=== PATIENT | female | born 1995 | race Caucasian/White ===

== ENCOUNTER 2018-10-01 18:18 | Inpatient (IN) | payer BC ==
[~2018-10-01] VITALS: Ht 170.2 cm; Wt 68.9 kg
--- NOTE | ~2018-10-01 | PATH ---
[facility] [address] [place] [address] PATHOLOGY RPT PROCEDURE Name: AMELIA VARGAS Room #: 450-P DIS IN M.R.#: [id number] Admission: 10/01/18 Date of : [birth year] Discharge: 10/05/18 Report #: [id number] Path Case #: [id number] [facility] Accession Number: [id number] . 01 Material submitted: . GALLBLADDER . 01 Clinical history: . Biliary dyskinesia, chronic cholecystitis. . 02 Diagnosis: Gallbladder, cholecystectomy: - Mild chronic cholecystitis. . (IUV:mml; 10/06/18) [facility]/10/06/2018 . 02 Electronically signed: . Tammie Sarmiento MD, Pathologist NPI- [id number] . 01 Gross description: . Received in formalin labeled "Amelia Vargas, gallbladder" is a previously opened cholecystectomy specimen measuring 6.5 x 2.2 x 0.8 cm. The serosa is swanson-green and smooth and the mucosa is swanson-green and velvety with scant yellow stippling. No polyps or masses are identified and the wall thickness measures 0.2 cm. Calculi are not identified within the gallbladder or within the container. Healthcare Economics Manager sections of the fundus and body and the cystic duct margin are submitted in cassette A1. ([facility]; 10/03/2018) SYC/SYC . 02 Pathologist provided ICD-10: K81.1 . 02 CPT . 337823 Specimen Comment: A courtesy copy of this report has been sent to Specimen Comment: [phone], . Specimen Comment: Report sent to / DR PALMER Performed at: 01 [facility] [address] [id number] MD Jaquan Ramos MD Phone: [phone] Performed at: [address] [id number] [address] [address] PATHOLOGY RPT PROCEDURE Name: AMELIA VARGAS Room #: 450-P [facility] IN M.R.#: [id number] Admission: 10/01/18 Date of : [birth year] Discharge: 10/05/18 Report #: [id number] Path Case #: [id number] MD Tammie Sarmiento MD Phone: [phone]
--- NOTE | ~2018-10-01 | EKG ---
[address] [address] ELECTROCARDIOGRAM REPORT Name: AMELIA VARGAS Room #: 450-P ADM IN M.R.#: [id number] Admission: 10/01/18 Attend Phys: Raul Alvarado Discharge: Date of : [birth year] Report #: [id number] THIS REPORT FOR: //name// [facility] ED Test Date: 2018-10-01 Test Time: 18:41:02 Pat Name: AMELIA VARGAS Department: Room: 450 Gender: F Full Stack Python Developer: LORNA : 1995 Requested By: Carmelita Parikh Order Number: [id number] MD: Gary Lutz Measurements Intervals [place] Rate: 77 P: 77 WV: 162 QRS: 38 QRSD: 78 T: 45 QT: 374 QTc: 424 Interpretive Statements Sinus rhythm Normal tracing No previous ECG available for comparison Electronically Signed On 10-02-2018 8:00:11 TELETYPE TECHNICIAN by Gary Lutz [email or web address] <ELECTRONICALLY SIGNED> By: Gary Lutz MD, [facility] 10/02/18 0800 1841 1841 Gary Lutz MD, FACC /EPI
--- NOTE | ~2018-10-01 | O ---
[facility] [address] OPERATIVE REPORT Name: AMELIA VARGAS Room #: 450-P ADM IN M.R.#: [id number] Admission: 10/01/18 Attend Phys: Raul Alvarado Discharge: Date of : [birth year] Report #: [id number] THIS REPORT FOR: //name// CC: DR ESTELA JOHNSON DATE OF SERVICE: 10/03/2018 SURGEON: Lan Soni MD BARBACK: TERA Pink. PREOPERATIVE DIAGNOSES: 1. Biliary colic with dyskinesia (gallbladder ejection fraction 7%). 2. Odynophagia secondary to esophageal ulcer. 3. Gastroesophageal reflux disease. POSTOPERATIVE DIAGNOSES: 1. Biliary colic with dyskinesia and chronic cholesterolosis. 2. Biliary colic with dyskinesia (gallbladder ejection fraction 7%). 3. Odynophagia secondary to esophageal ulcer. 4. Gastroesophageal reflux disease. PROCEDURE: Laparoscopic cholecystectomy. ANESTHESIA: General endotracheal anesthesia and local anesthetic. ESTIMATED BLOOD LOSS: 5 mL. SPECIMEN: Gallbladder. COMPLICATIONS: None appreciated. INDICATIONS FOR PROCEDURE: This is a 23-year-old female patient who presented to [facility] with epigastric/substernal chest pain associated with nausea and difficult, painful swallowing. The patient has had minimal right upper quadrant abdominal pain; however, she does report lower substernal chest pain favoring the right side postprandially. She has had initial pain with swallowing as well. Ultrasound revealed sludge with no evidence for acute inflammatory change. A PIPIDA scan revealed 7% ejection fraction, consistent with biliary dyskinesia. In addition to this, the patient had reproduction of her symptoms with intake of Ensure. Gastroenterology was consulted for suspicion of an esophageal issue as well as biliary dyskinesia. EGD revealed an ulcer in the esophagus, likely secondary to a pill or capsule. Despite this, [facility] [address] [place] [address] OPERATIVE REPORT Name: AMELIA VARGAS Room #: 450-P ADM IN M.R.#: [id number] Admission: 10/01/18 Attend Phys: Raul Alvarado Discharge: Date of : [birth year] Report #: [id number] due to the patient's other symptomatology and study results, cholecystectomy is indicated. OPERATIVE FINDINGS: Upon entrance into the abdominal cavity, the liver, stomach, small bowel and colon in the surrounding area appeared otherwise normal. The gallbladder itself was slightly distended with no acute inflammatory change. No chronic inflammatory changes were seen. The critical view consisting of cystic artery, cystic duct and lower edge of the gallbladder forming a window, through which the liver was visible, was seen prior to clipping the cystic duct for an attempted cholangiogram. The patient's cystic duct was extremely small. It did not allow for placement of the catheter for cholangiogram. After division of the cystic duct, 3 clips remained on the cystic duct stump. Upon opening the gallbladder on the back table, cholesterolosis was seen within the gallbladder. No stones were identified. At the conclusion of the operation, the sponge, needle and instrument counts were correct. DESCRIPTION OF PROCEDURE IN DETAIL: After the risks, benefits and expectations of the operation were discussed in detail with the patient, informed consent was obtained. The patient was identified in the preoperative holding area. She was given IV antibiotics as documented in the chart in line with SCIP metrics. The patient was then taken to the operating room, and she was placed in the supine position. SCDs were placed on the patient's bilateral lower extremities and pneumatic compression was initiated. The patient was then given IV sedation, and she was intubated without incident. A time-out was performed to identify the correct patient and procedure after prepping and draping the patient in the standard sterile fashion. Local anesthetic was infiltrated into the skin and subcutaneous tissue supraumbilically where a small vertical midline incision was made. An 11 mm Visiport was placed intraperitoneally with a 0-degree angled laparoscope. Pneumoperitoneum was then achieved with insufflation of carbon dioxide to 15 mmHg. A 30-degree angled laparoscope was inserted. The patient was placed in the reverse Trendelenburg position, rotated to her left. A subxiphoid 5 mm and right subcostal 5 mm ports x 2 were placed under direct visualization after local anesthetic was infiltrated into the skin and subcutaneous tissue and appropriately sized incisions were made. Operative findings are as noted above. The dome of the gallbladder was retracted in a cephalad direction. The gallbladder peritoneum was scored medially and laterally with the ultrasonic dissector. Dissection was carried out to identify the cystic artery and cystic duct as well as the critical view as described above. The artery and duct were the only two structures entering the gallbladder. The cystic duct was then clipped at its junction with the neck of the gallbladder. A ductotomy was created, and I attempted to pass the Taut catheter into the ductotomy; however, this was unsuccessful after several attempts due to the small caliber of the duct. The cholangiogram was aborted. The cystic duct was then triply clipped [address] [address] OPERATIVE REPORT Name: AMELIA VARGAS Room #: 450-P ADM IN M.R.#: [id number] Admission: 10/01/18 Attend Phys: Raul Alvarado Discharge: Date of : [birth year] Report #: [id number] and divided with the ultrasound dissector leaving 3 clips on the cystic duct stump. The cystic artery was divided with the ultrasound dissector with good hemostasis. The gallbladder was then dissected out of the liver bed without entrance into the gallbladder or liver bed. The gallbladder was placed in an Endopouch and removed through the supraumbilical port site. The abdominal cavity was then reentered. The liver bed was hemostatic, and the Hemoclips were secure. The remainder of the abdominal cavity was briefly surveyed and no other significant pathology was seen other than some mild scar tissue in the pelvis. The port site fascial opening was then closed with an 0 PDS suture using the Remigio-Claudine laparoscopic fascial closure device. The suture was tied under direct visualization to ensure no incorporation of intra-abdominal content. The abdominal cavity was then desufflated and the ports were removed. Interrupted subcuticular 4-0 Monocryl sutures and Dermabond were used to close the skin incisions. The patient tolerated the procedure well. She was awakened, extubated and taken to recovery room in stable condition with no apparent intraoperative complications. <ELECTRONICALLY SIGNED> By: Lan Soni MD, FACS 10/04/18 1043 1139 1224 Lan Soni MD, FACS /nt
--- NOTE | ~2018-10-01 | P ---
[facility] [place] [address] PROCEDURE REPORT Name: AMELIA VARGAS Room #: 450-P ADM IN M.R.#: [id number] Admission: 10/01/18 Attend Phys: Raul Alvarado Discharge: Date of : [birth year] Report #: [id number] THIS REPORT FOR: //name// CC: Christiano Holland PROCEDURE: Inpatient upper endoscopy. BRIEF HISTORY: The patient is a 23-year-old woman with odynophagia. She is known to use ibuprofen and doxycycline. She also has a gallbladder ejection fraction of 7%. PREOPERATIVE DIAGNOSIS: Odynophagia. POSTOPERATIVE DIAGNOSES: 1. Ulcerations mid esophagus consistent with "pill ulcer." 2. Mild erythematous gastritis without evidence of ulcers or erosions. MEDICATIONS: Deep sedation with propofol per Anesthesia. SPECIMEN: Biopsies of gastric mucosa. ESTIMATED BLOOD LOSS: 3 mL. PROCEDURE: EGD with biopsy. FINDINGS: Prior to propofol sedation, procedure of upper endoscopy discussed with the patient as well as potential risks and its complications. She indicates she understands and desires to proceed. DESCRIPTION OF PROCEDURE: With the patient in left decubitus position, the scope was advanced in the esophagus under direct vision without difficulty. Examination of esophagus through its entire length revealed ulceration in the range of about centimeter or so in the mid esophagus and there was also an ulcer on the opposite wall. These findings are consistent with a pill ulcer. The ulcers had white exudate at the base. There were no stigmata of bleeding. The ulcers were shallow. The mucosa otherwise throughout the esophagus down to the squamocolumnar junction was normal. There was no endoscopic evidence of reflux esophagitis. A hiatus hernia was not seen. The scope was advanced in the stomach, was examined on end view as well as retroflexed views. There was erythema in the antrum, but no ulcers were seen. As noted, she does use ibuprofen, but no ulcers or erosions were seen. Upon retroflexion, no mass lesions were seen. The pylorus was normal. Duodenal bulb was normal. Postbulbar duodenal sweep was within normal limits. At that point, the scope was slowly withdrawn and careful circumferential views confirmed the above findings. The patient tolerated the procedure well. [address] [address] PROCEDURE REPORT Name: ALICIAANNISTON Room #: 450-P [facility] IN M.R.#: [id number] Admission: 10/01/18 Attend Phys: Raul Alvarado Discharge: Date of : [birth year] Report #: [id number] DISPOSITION: The patient with odynophagia and chest pain. She clearly has esophageal ulcer and with her history of use of doxycycline and ibuprofen, these are likely pill ulcers. Suggest she use a PPI until symptoms resolve and then thereafter as needed. Also, she may use viscous lidocaine as needed for painful swallowing. Case discussed with Dr. Soni. <ELECTRONICALLY SIGNED> By: Hu Medeiros MD 10/04/18 1030 0851 0925 Hu Medeiros MD /nt
--- NOTE | ~2018-10-01 | PATH ---
[facility] [address] [place] [address] PATHOLOGY RPT PROCEDURE Name: ALICIAAMELIA Room #: 450-P DIS IN M.R.#: [id number] Admission: 10/01/18 Date of : [birth year] Discharge: 10/05/18 Report #: [id number] Path Case #: [id number] [facility] Accession Number: [id number] . 01 Material submitted: . GASTRIC BX R/O H PYLORI . 01 Clinical history: . Pre-OP DX: Epigastric pain Post-OP DX: Gastric ulcer . 02 Diagnosis: Gastric mucosa, gastric ulcer, endoscopic biopsy: - Mild reactive gastropathy. - No active ulcer identified. - Negative for intestinal metaplasia or atrophy. - Negative for Helicobacter pylori (properly controlled immunohistochemical stain performed). (IUV:sander; 10/06/2018) [facility]/10/06/2018 . 02 Electronically signed: . Tammie Sarmiento MD, Pathologist NPI- [id number] . 01 Gross description: . Received in formalin labeled "Amelia Vargas, gastric BX," are 3 segments of swanson soft tissue measuring 1.2 x 0.7 x 0.3 cm in aggregate dimensions and ranging from 0.4 to 0.6 cm in maximum dimension. The specimen is submitted entirely in cassette A1. ([facility]; 10/03/2018) TOB/TOB . 02 Pathologist provided ICD-10: K31.9 . 02 CPT . 458276, [id number] Specimen Comment: A courtesy copy of this report has been sent to Specimen Comment: [phone], , . Specimen Comment: Report sent to ,DR PALMER / DR JOHNSON Performed at: [address] [id number] MD Jaquan Ramos MD Phone: [phone] Performed at: [address] [address] PATHOLOGY RPT PROCEDURE Name: AMELIA VARGAS Room #: 450-P DIS IN M.R.#: [id number] Admission: 10/01/18 Date of : [birth year] Discharge: 10/05/18 Report #: [id number] Path Case #: [id number] [address] [place] [id number] MD Tammie Sarmiento MD Phone: [phone]
[2018-10-01 18:20] VITALS: BP 123/76
[2018-10-01 18:39] LABS: URINE BILIRUBIN NEGATIVE (Negative); URINE BLOOD TRACE (Negative); URINE CLARITY CLEAR; URINE COLOR YELLOW; URINE GLUCOSE-RANDOM* NEGATIVE (Negative); URINE KETONES TRACE (Negative); URINE LEUKOCYTES-REFLEX NEGATIVE (Negative); URINE NITRITE-REFLEX NEGATIVE (Negative); URINE PROTEIN (DIPSTICK) NEGATIVE (Negative); URINE SPECIFIC GRAVITY 1.025 (1.005-1.035); URINE UROBILINOGEN 0.2 E.U./dl (0.2-1.0)
[2018-10-01] MEDS ORDERED: ACTICLATE75 MG PO (18:42)
[2018-10-01] MEDS ORDERED: CARDIZEM CD120 MG PO (18:42)
[2018-10-01] MEDS ORDERED: JUNEL1 EAC1 PO (18:43)
[2018-10-01] MEDS ORDERED: PRILOSEC 10MG C10 MG PO (18:45)
[2018-10-01 20:06] LABS: ABSOLUTE NEUTROPHILS 6.8 thou/uL (1.4-8.2); BASOPHILS 0.4 % (0.0-2.0); HEMATOCRIT 37.6 % (37.0-47.0); HEMOGLOBIN 13.4 gm/dL (12.0-15.0); LYMPHOCYTES 22.8 % (24.0-44.0); MCH 31.4 pg (26.0-34.0); MCHC 35.7 g/dL (28.0-37.0); MCV 87.9 fL (80.0-100.0); PLATELET COUNT 274 thou/uL (150-400); POLYS 69.8 % (36.0-66.0); RBC 4.28 mil/uL (4.20-5.00); RDW 11.5 % (10.5-14.5); WBC 9.8 thou/uL (4.0-11.0)
[2018-10-01 20:13] LABS: ANION GAP 7 mmol/L (7-16); BUN 10 mg/dL (7-18); CALCIUM 9.4 mg/dL (8.5-10.1); CHLORIDE 104 mmol/L (98-107); CO2 26 mmol/L (21-32); GLUCOSE 90 mg/dL (74-106); SODIUM 137 mmol/L (136-145)
[2018-10-01 20:20] LABS: ALBUMIN 3.8 g/dL (3.4-5.0); LIPASE 109 U/L (73-393); SGOT 15 U/L (15-37); SGPT 17 U/L (30-65); TOTAL BILIRUBIN 0.4 mg/dL (<0.1-1.0); TOTAL PROTEIN 7.4 g/dL (6.4-8.2); TROPONIN-I <0.06 ng/mL (<0.06)
[2018-10-01 21:08] VITALS: BP 132/94
[2018-10-01 22:08] VITALS: BP 142/62
[2018-10-01 22:53] LABS: HDL CHOLESTEROL 59 mg/dL (>40); TC:HDL 3.3 Ratio (Not establshd); TRIGLYCERIDE 96 mg/dL (<150); VLDL 19 mg/dL (<40)
[2018-10-01 22:55] LABS: SERUM ASSESSMENT Clear
[2018-10-01 23:23] LABS: CHOLESTEROL 195 mg/dL (<200)
[2018-10-01 23:40] LABS: LDL CHOLESTEROL 117 mg/dL (<100)
[2018-10-02 03:31] VITALS: BP 109/66
[2018-10-02 04:50] LABS: CALCIUM 8.3 mg/dL (8.5-10.1); CREATININE 0.9 mg/dL (0.6-1.0)
[2018-10-02 04:56] LABS: MCH 30.7 pg (26.0-34.0); MCHC 34.2 g/dL (28.0-37.0); RBC 3.45 mil/uL (4.20-5.00); RDW 11.9 % (10.5-14.5); WBC 6.8 thou/uL (4.0-11.0)
[2018-10-02 05:03] LABS: HEMOGLOBIN 10.6 gm/dL (12.0-15.0)
[2018-10-02 08:22] VITALS: BP 138/82
[2018-10-02 14:50] VITALS: BP 139/74
[2018-10-02 19:15] VITALS: BP 122/74
[2018-10-03 04:07] VITALS: BP 114/65
[2018-10-03] MEDS ORDERED: SENNA-S TABLET1 EACH PO (11:32)
[2018-10-03] MEDS ORDERED: NORCO 5-325 TA1 EACH PO (11:32)
[2018-10-03 13:00] VITALS: BP 101/56
[2018-10-03 13:30] VITALS: BP 101/44
[2018-10-03 14:00] VITALS: BP 102/57
[2018-10-03 17:00] VITALS: BP 117/70
[2018-10-03 19:47] VITALS: BP 125/72
[2018-10-04 05:42] LABS: ABSOLUTE NEUTROPHILS 8.2 thou/uL (1.4-8.2); BASOPHILS 0.1 % (0.0-2.0); EOSINOPHILS 0.2 % (0.0-3.0); HEMATOCRIT 33.4 % (37.0-47.0); HEMOGLOBIN 11.8 gm/dL (12.0-15.0); LYMPHOCYTES 11.1 % (24.0-44.0); MCH 31.2 pg (26.0-34.0); MCHC 35.2 g/dL (28.0-37.0); MCV 88.5 fL (80.0-100.0); MONOCYTES 8.9 % (1.0-8.0); PLATELET COUNT 243 thou/uL (150-400); POLYS 79.7 % (36.0-66.0); RBC 3.77 mil/uL (4.20-5.00); RDW 11.7 % (10.5-14.5); WBC 10.3 thou/uL (4.0-11.0)
[2018-10-04 05:57] LABS: CALCIUM 8.4 mg/dL (8.5-10.1); CREATININE 0.8 mg/dL (0.6-1.0); POTASSIUM 3.9 mmol/L (3.5-5.1)
[2018-10-04 08:00] VITALS: BP 105/68
[2018-10-04] MEDS ORDERED: HYDROCODONE-ACE15 ML PO (11:19)
[2018-10-04 14:35] VITALS: BP 110/65
[2018-10-04 19:18] VITALS: BP 118/57
[2018-10-05 04:06] VITALS: BP 108/73
[2018-10-05 07:29] VITALS: BP 108/64
[2018-10-05 14:35] VITALS: BP 133/68
[2018-10-05] MEDS ORDERED: CARAFATE 11 GM/10 M1 PO (15:41)
[2018-10-05] MEDS ORDERED: HYDROCODONE-ACE15 ML PO (15:41)
[2018-10-05] MEDS ORDERED: ACETAMINOPHEN325 M1 PO (15:41)
[2018-10-05] MEDS ORDERED: PANTOPRAZOLE SO40 M1 PO (15:41)
[2018-10-05] MEDS ORDERED: LIDOCAINE VISC100 ML MUCOUS MEM (15:41)
[2018-10-05 15:47] VITALS: BP 133/68
== END 2018-10-05 18:48 | disposition home or self-care (01) | DRG 418 ==
LOC: ER 18:18 → 4W 20:43 → EROBS 20:43 → 4W 21:12
PROVIDERS: Emergency Medicine; Nurse Practitioner Family; Physician Assistant; Surgery
PROC: 0DB68ZX Excision of Stomach, Via Natural or Artificial Opening Endoscopic, Diagnostic (ICD-10-PCS; principal; 2018-10-03)
PROC: 0FT44ZZ Resection of Gallbladder, Percutaneous Endoscopic Approach (ICD-10-PCS; principal; 2018-10-03)
DX: K80.50 Calculus of bile duct without cholangitis or cholecystitis without obstruction (principal); K22.10 Ulcer of esophagus without bleeding; K82.8 Other specified diseases of gallbladder; K29.70 Gastritis, unspecified, without bleeding; R13.19 Other dysphagia; E86.0 Dehydration; K21.9 Gastro-esophageal reflux disease without esophagitis; N80.9 Endometriosis, unspecified; Z90.49 Acquired absence of other specified parts of digestive tract; Z79.899 Other long term (current) drug therapy; Z82.49 Family history of ischemic heart disease and other diseases of the circulatory system; Z82.3 Family history of stroke; Z83.3 Family history of diabetes mellitus; Z80.3 Family history of malignant neoplasm of breast; Z28.21 Immunization not carried out because of patient refusal
CPT/HCPCS: 10045; 50010; 50101; 50249; 50411; 50555; 50558; 50962; 51975; 52265; 53307; 54022; 54118; 55245; 55317; 56462; 56525; 56526; 62110; 62900; 70005